=== PATIENT | male | born 1955 | race Caucasian/White ===

== ENCOUNTER → 2016-04-22 | Outpatient (CLI) | payer OTHER | END | disposition home or self-care (01) | LOC: LAB.O 10:02 | PROVIDERS: ATTEND Internal Medicine Gastroenterology | DX: B18.2 Chronic viral hepatitis C (principal) ==

== ENCOUNTER → 2016-08-05 | Outpatient (CLI) | payer OTHER ==
--- NOTE | 2016-08-06 13:01 | MRI ---
EXAM DESCRIPTION: Lumbar Spine w/o Contrast CLINICAL HISTORY: DISC DISPLACEMENT. Low back pain with left hip and leg pain. Associated numbness and muscle spasms. COMPARISON: None Available. TECHNIQUE: MRI of the lumbar spine is performed according to our usual protocol with axial and sagittal multi sequence imaging. FINDINGS: The designated L5-S1 disc space is on axial T2 image 8. Transitional lumbosacral anatomy is present. The S1 vertebral body is considered transitional and partially lumbarized with a somewhat well-formed S1-S2 disc. There is good alignment of the lumbar spine. There is no acute fracture or destructive osseous lesion. The conus medullaris terminates normally. L1-2: No significant findings. L2-3: No significant findings. L3-4: Mild facet hypertrophy with ligamentum flavum thickening. No significant disc bulge, spinal canal, or neural foraminal stenosis. L4-5: Mild facet hypertrophy with ligamentum flavum thickening. Minimal disc desiccation. 2 mm posterior disc bulge with mild bilateral lateral recess narrowing. The spinal canal and neural foramina are patent. L5-S1: Disc desiccation with moderate disc narrowing. There is a generalized posterior disc osteophyte complex and a left paracentral 6 mm AP disc protrusion with high-grade left lateral recess narrowing. Material contacts and displaces the transiting left S1 nerve root. Minimal bilateral neural foraminal stenosis. The spinal canal is patent. S1-S2: Transitional anatomy with a somewhat well-formed disc. No spinal canal or neural foraminal stenosis. IMPRESSION: 1. Transitional lumbosacral anatomy as described above. For the purposes of this report, the designated L5-S1 disc space is on axial T2 image 8. The S1 vertebral body is considered transitional and partially lumbarized with a well-formed S1-S2 disc. 2. At L5-S1, there is a large left paracentral disc protrusion with high-grade left lateral recess narrowing and minimal bilateral neural foraminal stenosis. 3. Other findings as above. Electronically signed by: Dayday Beyer MD 08/06/2016 1:00 PM CDT
== END ==
LOC: MRI 07:05
PROVIDERS: ATTEND Family Medicine
DX: M51.27 Other intervertebral disc displacement, lumbosacral region (principal)

== ENCOUNTER → 2017-03-03 | Outpatient (CLI) | payer OTHER, SELFPAY | END | disposition home or self-care (01) | LOC: GMAJ 16:56 | PROVIDERS: ATTEND Family Medicine | DX: Z00.00 Encounter for general adult medical examination without abnormal findings (principal) ==

== ENCOUNTER → 2018-03-17 | Outpatient (CLI) | payer BC | LOC: GMAJ 11:04 | PROVIDERS: ATTEND Family Medicine | DX: Z12.5 Encounter for screening for malignant neoplasm of prostate (principal) ==

== ENCOUNTER → 2019-12-28 | Outpatient (CLI) | payer BC | LOC: GMAJ 10:18 | PROVIDERS: ATTEND Family Medicine | DX: R03.0 Elevated blood-pressure reading, without diagnosis of hypertension (principal); Z79.899 Other long term (current) drug therapy; Z12.5 Encounter for screening for malignant neoplasm of prostate; Z13.29 Encounter for screening for other suspected endocrine disorder ==